=== PATIENT | male | born 1980 | race Caucasian/White ===

== ENCOUNTER → 2025-02-03 13:00 | Outpatient (CLI) | payer BC, SELFPAY ==
--- NOTE | 2025-02-03 13:04 | DI.RAD.S_ITS ---
PROCEDURE: XR CERVICAL SPINE 4V OR 5V INDICATIONS: NECK AND ARM PAIN TECHNIQUE: 5 views of the cervical spine acquired. COMPARISON: None. FINDINGS: Bones: No fractures or dislocations to the T1 level. There is severe right bony foraminal narrowing at C6-C7 secondary to uncovertebral joint osteophyte. There is mild multilevel left bony foraminal narrowing. Soft tissues: No prevertebral soft tissue swelling. IMPRESSION: Severe right bony foraminal narrowing at C6-C7. Dictated by: Erick Garcia M.D. on 02/03/2025 at 14:02 Approved by: Erick Garcia M.D. on 02/03/2025 at 14:03
== END ==
PROVIDERS: PCP Family Medicine; Referring Provider Physical Medicine & Rehabilitation; Visit Provider Physical Medicine & Rehabilitation
DX: M48.02 Spinal stenosis, cervical region (principal); M25.78 Osteophyte, vertebrae; M54.2 Cervicalgia; M79.603 Pain in arm, unspecified
CPT/HCPCS: 72050